=== PATIENT | female | born 1955 | race Caucasian/White ===

== ENCOUNTER 2017-06-19 17:21 | Emergency (ER) | payer BC ==
[~2017-06-19] VITALS: Ht 162.6 cm; Wt 54.4 kg
[2017-06-19] MEDS ORDERED: VITAMIN D-32000 UNIT PO (18:45)
[2017-06-19] MEDS ORDERED: VITAMIN B125000 MCG PO (18:46)
[2017-06-19] MEDS ORDERED: CALTRATE 600+D1 EAC2 PO (18:46)
[2017-06-19] MEDS ORDERED: TYLENOL325 MG PO (18:50)
[2017-06-19] MEDS ORDERED: STIOLTO RESPIMAT4 GM INH (18:50)
[2017-06-19] MEDS ORDERED: BUSPIRONE HCL10 MG PO (18:51)
[2017-06-19] MEDS ORDERED: TRAZODONE HCL50 MG PO (18:51)
[2017-06-19] MEDS ORDERED: GABAPENTIN300 MG PO (18:52)
[2017-06-19] MEDS ORDERED: PRISTIQ ER50 MG PO (18:52)
[2017-06-19] MEDS ORDERED: PREDNISONE20 MG PO (19:35)
--- NOTE | 2017-06-19 20:20 | EKG ---
[facility] [address] [facility] [place] [address] Signed Sinus tachycardia Right atrial enlargement Borderline ECG No previous ECGs available Confirmed by LOREN LOCKHART MD ([id number] on 06/19/2017 8:19:48 PM Electronically Signed By: LOREN LOCKHART MD 06/19/17 2020 PATIENT NAME: SHARONDA REYES Electrocardiogram DATE OF : 53 PHYSICIAN: LOREN LOCKHART MD REPORT #: [id number] REPORT IS CONFIDENTIAL AND NOT TO BE RELEASED WITHOUT AUTHORIZATION
== END 2017-06-19 20:00 | disposition home or self-care (01) ==
LOC: ED 17:21
DX: R06.02 Shortness of breath (principal); T36.3X5A Adverse effect of macrolides, initial encounter; J44.9 Chronic obstructive pulmonary disease, unspecified; F32.9 Major depressive disorder, single episode, unspecified; F41.9 Anxiety disorder, unspecified; Z88.0 Allergy status to penicillin; Z88.1 Allergy status to other antibiotic agents; Z87.891 Personal history of nicotine dependence; Z79.899 Other long term (current) drug therapy
CPT/HCPCS: 71010; 80053; 82803; 85025; 93005; 93010; 94640; 96374; 96375; 99283; J1200; J2930

== ENCOUNTER 2018-03-03 17:44 | Emergency (ER) | payer OTHER ==
[~2018-03-03] VITALS: Ht 160 cm; Wt 59.0 kg
[~2018-03-03 17:44] MED LIST: BUSPIRONE HCL10 MG PO; CALTRATE 600+D1 EAC2 PO; GABAPENTIN300 MG PO; PREDNISONE20 MG PO; PRISTIQ ER50 MG PO; STIOLTO RESPIMAT4 GM INH; TRAZODONE HCL50 MG PO; TYLENOL325 MG PO; VITAMIN B125000 MCG PO; VITAMIN D-32000 UNIT PO
[2018-03-03] MEDS ORDERED: PREDNISONE20 MG PO (18:08)
[2018-03-03] MEDS ORDERED: CYMBALTA30 MG PO (18:26)
[2018-03-03] MEDS ORDERED: VENTOLIN HFA18 GM INH (18:28)
[2018-03-03] MEDS ORDERED: MULTI VITAMIN1 EACH PO (18:29)
[2018-03-03] MEDS ORDERED: L-METHYLFOLATE15 MG PO (18:33)
== END 2018-03-03 18:42 | disposition short-term general hospital (02) ==
LOC: ED 17:44
DX: L50.9 Urticaria, unspecified (principal); J44.9 Chronic obstructive pulmonary disease, unspecified; F41.9 Anxiety disorder, unspecified; F32.9 Major depressive disorder, single episode, unspecified; Z88.0 Allergy status to penicillin; Z88.1 Allergy status to other antibiotic agents; Z79.899 Other long term (current) drug therapy
CPT/HCPCS: 99283; J7512